=== PATIENT | female | born 1970 | race Hispanic/Latino ===

== ENCOUNTER 2020-04-07 17:51 | Emergency (ER) | payer BC, OTHER ==
[~2020-04-07] VITALS: Ht 157.5 cm; Wt 85.3 kg
[2020-04-07] MEDS ORDERED: LISINOPRIL10 MG PO (18:13)
== END 2020-04-07 20:20 | disposition home or self-care (01) ==
LOC: FSED 18:10
DX: S93.401A Sprain of unspecified ligament of right ankle, initial encounter (principal); M79.672 Pain in left foot; W10.8XXA Fall (on) (from) other stairs and steps, initial encounter; Y93.01 Activity, walking, marching and hiking; Y92.008 Other place in unspecified non-institutional (private) residence as the place of occurrence of the external cause; I10 Essential (primary) hypertension
CPT/HCPCS: 99283

== ENCOUNTER 2022-07-22 13:12 | Emergency (ER) | payer BC, OTHER ==
[~2022-07-22] VITALS: Ht 157.5 cm; Wt 95.7 kg
[~2022-07-22 13:12] MED LIST: LISINOPRIL10 MG PO
[2022-07-22] MEDS ORDERED: NAPROSYN500 MG PO (15:29)
== END 2022-07-22 16:04 | disposition home or self-care (01) ==
LOC: FSED 13:15
DX: S93.492A Sprain of other ligament of left ankle, initial encounter (principal); S93.692A Other sprain of left foot, initial encounter; W01.0XXA Fall on same level from slipping, tripping and stumbling without subsequent striking against object, initial encounter; Y93.01 Activity, walking, marching and hiking; Y92.89 Other specified places as the place of occurrence of the external cause; I10 Essential (primary) hypertension
CPT/HCPCS: 99283

== ENCOUNTER 2022-08-12 19:35 | Emergency (ER) | payer BC ==
[~2022-08-12] VITALS: Ht 157.5 cm; Wt 96.6 kg
[~2022-08-12 19:35] MED LIST changes: +NAPROSYN500 MG PO
[2022-08-12] MEDS ORDERED: ONDANSETRON HCL INJ 2MG/ML 2ML 2 MG/ML VIAL ONE (19:55)
[2022-08-12] MEDS ORDERED: FAMOTIDINE 20 MG/2 ML VIAL IV ONE (19:56)
[2022-08-12] MEDS ORDERED: SODIUM CHLORIDE 0.9% 1000ML 1,000 ML ONE (19:56)
[2022-08-12] MEDS ORDERED: ONDANSETRON HCL INJ 2MG/ML 2ML 2 MG/ML VIAL IV STA (19:57)
[2022-08-12] MEDS ORDERED: FAMOTIDINE 20 MG/2 ML VIAL IV STA (19:57)
[2022-08-12] MEDS ORDERED: SODIUM CHLORIDE 0.9% 1000ML 1,000 ML IV ONE (20:00)
[2022-08-12] MEDS ORDERED: POTASSIUM CHLORIDE 20 MEQ TAB CR PO STA (20:32)
[2022-08-12] MEDS ORDERED: ONDANSETRON ODT4 MG PO (20:41)
[2022-08-12] MEDS ORDERED: PEPCID20 MG PO (20:41)
[2022-08-12] MEDS ORDERED: DICYCLOMINE HCL10 MG PO (20:42)
[2022-08-12] MEDS ORDERED: POTASSIUM CHLORIDE 20 MEQ TAB CR PO ONE (21:01)
== END 2022-08-12 20:54 | disposition home or self-care (01) ==
LOC: FSED 19:56
DX: K52.9 Noninfective gastroenteritis and colitis, unspecified (principal); I10 Essential (primary) hypertension; Z90.49 Acquired absence of other specified parts of digestive tract; Z79.899 Other long term (current) drug therapy
CPT/HCPCS: 80048; 80076; 81003; 85025; 96374; 96376; 99283; J2405; J7030

== ENCOUNTER 2024-04-15 14:54 | Emergency (ER) | payer BC ==
[~2024-04-15] VITALS: Ht 157.5 cm; Wt 103.4 kg
[~2024-04-15 14:54] MED LIST changes: +DICYCLOMINE HCL10 MG PO; +ONDANSETRON ODT4 MG PO; +PEPCID20 MG PO; +ROSUVASTATIN CAL5 MG PO
[2024-04-15 15:04] VITALS: PULSE 95; RESP 18; TEMP 98.7; O2SAT 97
[2024-04-15 15:31] VITALS: TEMP 98
== END 2024-04-15 15:32 | disposition home or self-care (01) ==
LOC: FSED 15:18
DX: R05.9 Cough, unspecified (principal); H66.91 Otitis media, unspecified, right ear; I10 Essential (primary) hypertension; D64.9 Anemia, unspecified; E78.5 Hyperlipidemia, unspecified; Z86.718 Personal history of other venous thrombosis and embolism
CPT/HCPCS: 99282